=== PATIENT | male | born 1975 | race Native Hawaiian/Other Pacific Islander ===

== ENCOUNTER 2016-06-18 15:18 | Emergency (ER) | payer OTHER ==
[~2016-06-18] VITALS: Ht 195.6 cm; Wt 88.5 kg
[2016-06-18 16:07] LABS: PLATELET COUNT 252 K/uL (142-355)
[2016-06-18 16:11] LABS: POTASSIUM 2.9 mmol/L (3.6-5.2); SODIUM 140 mmol/L (136-145)
[2016-06-18 16:46] VITALS: BP 134/89; TEMP 97.9
== END 2016-06-18 16:51 | disposition home or self-care (01) ==
LOC: ED 15:18
PROC: 0T9B70Z Drainage of Bladder with Drainage Device, Via Natural or Artificial Opening (ICD-10-PCS; principal; 2016-06-18)
DX: F10.10 Alcohol abuse, uncomplicated (principal); F15.10 Other stimulant abuse, uncomplicated; F12.10 Cannabis abuse, uncomplicated
CPT/HCPCS: 36415; 51702; 80053; 80307; 80320; 85027; 96361; 96374; 96375; 99285; G0479; J2310

== ENCOUNTER 2019-08-03 13:37 | Emergency (ER) | payer OTHER ==
[~2019-08-03] VITALS: Ht 190.5 cm; Wt 95.3 kg
[2019-08-03 13:58] VITALS: TEMP 98.5
[2019-08-03 14:37] LABS: PLATELET COUNT 361 K/uL (142-355)
[2019-08-03 14:44] LABS: POTASSIUM 3.6 mmol/L (3.6-5.2); SODIUM 135 mmol/L (136-145)
[2019-08-03 14:49] LABS: PARTIAL THROMBOPLASTIN TIME 25.4 SECONDS (24.5-33.6)
[2019-08-03 16:34] VITALS: BP 133/78
== END 2019-08-03 16:35 | disposition home or self-care (01) ==
LOC: ED 13:37
PROVIDERS: Emergency Medicine
DX: R07.89 Other chest pain (principal); F10.20 Alcohol dependence, uncomplicated
CPT/HCPCS: 36415; 80053; 80307; 80320; 81000; 82550; 84484; 85027; 85610; 85730; 87502; 87651; 93005; 96365; 99284; J3411; J3475; J3490